=== PATIENT | female | born 1965 | race Caucasian/White ===

== ENCOUNTER 2021-10-09 05:59 | Day surgery (SDC) | payer BC ==
[~2021-10-09] VITALS: Ht 152.4 cm; Wt 65.0 kg
[~2021-10-09 05:59] MED LIST: BYSTOLIC5 MG PO; EXCEDRIN TENSIO1 TAB PO
[2021-10-09] MEDS ORDERED: LIPITOR 10MG10 MG PO (06:24)
[2021-10-09] MEDS ORDERED: BYSTOLIC10 MG PO (06:24)
[2021-10-09] MEDS ORDERED: ALPHAG-P-0.1-5ML (06:25)
[2021-10-09] MEDS ORDERED: DAYVIGO5 MG PO (06:25)
[2021-10-09] MEDS ORDERED: VITAMIN C500 MG PO (06:26)
[2021-10-09] MEDS ORDERED: VITAMIN D250 MCG PO (06:27)
[2021-10-09] MEDS ORDERED: PRIL40 PO (06:27)
[2021-10-09] MEDS ORDERED: FLONASEALLERGY NS (06:28)
[2021-10-09 07:25] VITALS: BP 135/72; PULSE 79; TEMP 96.7
[2021-10-09 07:40] VITALS: BP 131/82; PULSE 79
[2021-10-09 07:55] VITALS: BP 133/82; PULSE 63
[2021-10-09 16:51] VITALS: BP 160/94; PULSE 70; TEMP 97
== END 2021-10-09 08:10 | disposition home or self-care (01) ==
LOC: SDCO 05:59
DX: K29.50 Unspecified chronic gastritis without bleeding (principal); I10 Essential (primary) hypertension; K21.9 Gastro-esophageal reflux disease without esophagitis; Z79.899 Other long term (current) drug therapy; Z90.89 Acquired absence of other organs
CPT/HCPCS: J2704; J7120

== ENCOUNTER → 2021-10-22 | Outpatient (CLI) | payer BC ==
[~2021-10-22] MED LIST changes: +ALPHAG-P-0.1-5ML; +BYSTOLIC10 MG PO; +DAYVIGO5 MG PO; +FLONASEALLERGY NS; +LIPITOR 10MG10 MG PO; +PRIL40 PO; +VITAMIN C500 MG PO; +VITAMIN D250 MCG PO
== END ==
LOC: COL.RAD 06:17
DX: R10.11 Right upper quadrant pain (principal)
CPT/HCPCS: A9537